=== PATIENT | female | born 1935 | race African-American/Black ===

== ENCOUNTER 2021-04-07 12:47 | Emergency (ER) | payer OTHER ==
[~2021-04-07] VITALS: Ht 162.6 cm; Wt 60.3 kg
--- NOTE | 2021-04-07 13:02 | NUR ---
[email or web address],medical screening exam in progress
[2021-04-07] MEDS ORDERED: PRAVASTATIN (13:08)
[2021-04-07] MEDS ORDERED: ATENOLOL (13:08)
[2021-04-07] MEDS ORDERED: AMLODIPIN (13:08)
[2021-04-07] MEDS ORDERED: HYDRALAZINE (13:08)
[2021-04-07] MEDS ORDERED: PREGABALIN (13:08)
[2021-04-07] MEDS ORDERED: OMEPRAZOLE (13:08)
--- NOTE | 2021-04-07 13:08 | NUR ---
PT DOES NOT REMEMBER DOSAGES OF HER HOME MEDICATION.
[2021-04-07] MEDS ORDERED: HYDROCODONE/APAP 5-325MG TABLET PO ONE (13:15)
[2021-04-07] MEDS ORDERED: HYDROCODONE/APAP 5-325MG TABLET ONE (13:24)
[2021-04-07] MEDS ORDERED: ACETAMINOPHEN ES 500 MG TABLET ONE (13:27)
[2021-04-07 13:29] LABS: HEMATOCRIT 35.5 % (31.2-41.9); MEAN CORPUSCULAR HEMOGLOBIN 32.5 uug (24.7-32.8); MEAN CORPUSCULAR VOLUME 98.1 fL (75.5-95.3); PLATELET COUNT (AUTO) 139 K/uL (179-408)
[2021-04-07] MEDS ORDERED: ONDANSETRON 4 MG/2 ML VIAL IV ONE (13:30)
[2021-04-07] MEDS ORDERED: ONDANSETRON 4 MG/2 ML VIAL ONE (13:30)
[2021-04-07] MEDS ORDERED: ACETAMINOPHEN 325 MG TABLET PO ONE (13:30)
[2021-04-07 13:34] LABS: CREATININE 0.6 mg/dL (0.6-1.3)
[2021-04-07 13:40] LABS: BILIRUBIN,DIRECT 0.1 mg/dL (0.0-0.2); BILIRUBIN,TOTAL 0.5 mg/dL (0.2-1.0); TOTAL PROTEIN, SERUM 6.8 g/dL (6.4-8.2)
--- NOTE | 2021-04-07 13:43 | NUR ---
Patient is resting comfortably on a gurney in a high carter's position using her personal electronic device, calm & breathing easily, NAD.
[2021-04-07] MEDS ORDERED: IOHEXOL 300MG/ML 100 ML INFUS..BTL ONE (13:55)
[2021-04-07] MEDS ORDERED: IOPAMIDOL 15 ML VIAL IT ONE (13:55)
[2021-04-07] MEDS ORDERED: SWABABLE VALVE TRANSFER SET EA MC ONE (13:55)
--- NOTE | 2021-04-07 15:20 | NUR ---
Patient's [email or web address], pending disposition.
--- NOTE | 2021-04-07 16:00 | NUR ---
IV removed. Catheter intact and site benign. Pressure and 4x4 gauze applied to site. No bleeding noted. Patient discharged to home in stable condition with slow steady gait. Written and verbal after care instructions given to patient and family. Patient and family verbalized understanding and compliance of instructions. Stressed follow up with primary doctor or return to ER for worsening s/s. Patient voided in ER before leaving the hospital.
== END 2021-04-07 16:01 | disposition home or self-care (01) ==
LOC: ER 12:47
DX: S20.219A Contusion of unspecified front wall of thorax, initial encounter (principal); V49.40XA Driver injured in collision with unspecified motor vehicles in traffic accident, initial encounter; W22.11XA Striking against or struck by driver side automobile airbag, initial encounter; Y92.414 Local residential or business street as the place of occurrence of the external cause; R10.9 Unspecified abdominal pain; G35 Multiple sclerosis; E78.5 Hyperlipidemia, unspecified; K58.9 Irritable bowel syndrome, unspecified; K21.9 Gastro-esophageal reflux disease without esophagitis; Z79.899 Other long term (current) drug therapy; I10 Essential (primary) hypertension; I67.2 Cerebral atherosclerosis
CPT/HCPCS: 36415; 70450; 71045; 71260; 72125; 74177; 80048; 80076; 84484; 85025; 85730; 93005; 96374; 99285; J2405; Q9967 ×2; 70030-TC; A4663; A9150